=== PATIENT | male | born 1945 | race Caucasian/White ===

== ENCOUNTER → 2021-04-20 | Outpatient (CLI) | payer MEDICARE, BC ==
[~2021-04-20] MED LIST: ASPIR LOW81 MG PO; B-1100 M1 PO; CEFDINIR300 MG PO; COREG 6.256.25 MG/TA PO; FLAGYL500 M1 PO; FLOMAX0.4 MG PO; FOLITAB 500 CA1 EACH PO; LIPITOR 10M10 MG/TAB PO; MUCUS ER1200 MG PO; XARELTO20 MG PO; ZYLOPRIM 100MG100 MG PO
== END ==
LOC: LAB 13:25
DX: C61 Malignant neoplasm of prostate (principal)

== ENCOUNTER → 2021-10-15 | Outpatient (CLI) | payer MEDICARE, BC | LOC: LAB 11:14 | DX: C61 Malignant neoplasm of prostate (principal) ==